=== PATIENT | female | born 1980 | race Caucasian/White ===

== ENCOUNTER 2021-10-05 09:26 | Emergency (ER) | payer MEDICAID, SELFPAY ==
[2021-10-05] VITALS (7 sets, daily range): BP systolic 116–140; BP diastolic 75–88; PULSE 82–95; RESP 12–16; TEMP 36.6–36.8; O2SAT 99–100; BMI 24.3
--- NOTE | 2021-10-05 09:46 | [facility]H.EDOD ---
ED Disposition Clinical Impression: Drug overdose Qualifiers: Encounter type: initial encounter Injury intent: accidental or unintentional Qualified Code(s): T50.901A - Poisoning by unspecified drugs, medicaments and biological substances, accidental (unintentional), initial encounter Disposition: Home, Self-Care Condition on Discharge: Good Instructions: DI for Drug Overdose in Adults Referrals: Provider,Referral, [Primary Care Provider] - - Critical Care Critical Care Time: No Attestation: On 10/05/21, the high probability of a clinically significant, sudden or life threatening deterioration of the following system(s) required my full and direct attention, intervention and personal management. The time I documented below is in addition to time spent performing reported procedures but includes the following listed in this critical care notation. Medical Decision Making - Medical Records Medical records reviewed: Yes: I reviewed the patient's medical records. - Andrew Inquiry Pt receiving controlled substance: No Vital Signs: 10/05/21 09:27 10/05/21 09:30 10/05/21 10:00 Temperature 97.8 F Temperature Source Oral Pulse Rate 82 88 Pulse Rate [Right Radial] 82 Respiratory Rate 13 12 15 Blood Pressure 138/86 129/84 Blood Pressure [Right Arm] 140/88 Blood Pressure Mean Blood Pressure Mean [Right Arm] 105 Blood Pressure Source [Right Arm] Automatic Cuff Blood Pressure Position [Right Arm] Supine 02 Sat by Pulse Oximetry 100 99 100 Oxygen Delivery Method Room Air 10/05/21 10:30 Temperature Temperature Source Pulse Rate 91 H Pulse Rate [Right Radial] Respiratory Rate 16 Blood Pressure 123/83 Blood Pressure [Right Arm] Blood Pressure Mean 94 Blood Pressure Mean [Right Arm] Blood Pressure Source [Right Arm] Blood Pressure Position [Right Arm] 02 Sat by Pulse Oximetry 100 Oxygen Delivery Method Room Air Orders (Tests/Meds): ED MEDICATIONS Generic Name Dose Route Start Last Admin Trade Name Freq PRN Reason Stop Dose Admin Sodium Chloride 10 ml 10/05/21 10:07 Sodium Chloride 0.9% 10ml Flush Syringe IV 11/04/21 10:06 NEEDED PRN Maintain IV Site Discontinued Medications Generic Name Dose Route Start Last Admin Trade Name Freq PRN Reason Stop Dose Admin Sodium Chloride 1,000 mls @ 999 mls/hr 10/05/21 09:30 10/05/21 10:06 Sod Chlor 0.9% 1000ml Bag IV 10/05/21 10:30 999 mls/hr .Q1H1M KARI Administration Naloxone HCl 2 mg 10/05/21 09:30 10/05/21 10:06 Naloxone 2mg/2ml Syringe IV 10/05/21 09:31 2 mg ONCE ONE Administration Ondansetron HCl 4 mg 10/05/21 09:31 10/05/21 10:06 Ondansetron 4mg/2ml Vial IV 10/05/21 09:32 4 mg ONCE ONE Administration - Reevaluation(s) Time: 11:06 Reevaluation #1: On reevaluation, the patient is much more alert. Tolerating oral intake. Repeat neuro exam is normal. I did offer evaluation for rehab placement, however patient declined at this time. Patient was educated on the dangers of substance abuse. Patient is to follow-up with PCP in 48 hours. Given strict return precautions. Verbalized understanding. Medical Decision Narrative: 41-year-old female presenting after an axonal overdose. Patient used IV heroin. We will administer an additional dose of IV Narcan as the patient is slightly drowsy. Overdose HPI - General Chief Complaint: Overdose Stated Complaint: overdose Time Seen by Provider: 10/05/21 09:35 Mode of Arrival: EMS Limitations: No Limitations Description of Symptoms (Recalled from ER Triage Doc. by RN): Pt to ED per EMS following a reported heroin OD. EMS advises that pt was pulsless on on arrival, compressions were began and intranasal Narcan was administered. Pt A&O upon arrival to ED. - History of Present Illness HPI Narrative: 41-year-old female presented to the emergency department after accidental overdose. Patient is a longstanding history of meth
--- NOTE | 2021-10-05 12:44 | PC.NURSE ---
Pt discharged at this time in care of mother and sister.
== END 2021-10-05 12:46 | disposition home or self-care (01) ==
PROVIDERS: Emergency Provider Emergency Medicine
DX: T40.1X1A Poisoning by heroin, accidental (unintentional), initial encounter (principal); F11.10 Opioid abuse, uncomplicated; F15.10 Other stimulant abuse, uncomplicated; Z88.6 Allergy status to analgesic agent
CPT/HCPCS: 96361; 96365; 96374; 96375; 99284; J2310; J2405